=== PATIENT | male | born 1955 | race Caucasian/White ===

== ENCOUNTER 2023-10-06 06:45 | Day surgery (SDC) | payer OTHER ==
[~2023-10-06] VITALS: Ht 175.3 cm; Wt 82.1 kg
[2023-10-06] MEDS ORDERED: SODIUM CHLORIDE 0.9% 1,000 ML ONE (07:40)
[2023-10-06 08:06] LABS: GLUCOMETER DEV NAME(LOC) SDS.; GLUCOSE,POINT OF CARE 141 MG/DL (70-110)
[2023-10-06] MEDS ORDERED: LOSA-382 PO (08:11)
[2023-10-06] MEDS ORDERED: FLUT16SP NASAL (08:11)
[2023-10-06] MEDS ORDERED: FLUT1BLS19 IH (08:11)
[2023-10-06] MEDS ORDERED: METF-1211 PO (08:11)
[2023-10-06] MEDS ORDERED: AMLO-258 PO (08:11)
[2023-10-06] MEDS ORDERED: ALBU18HF12 IH (08:11)
[2023-10-06] MEDS ORDERED: MONT-35 PO (08:11)
[2023-10-06] MEDS ORDERED: OMEP20 PO (08:11)
[2023-10-06] MEDS: SODIUM CHLORIDE 0.9% 1,000 ML IV ONE (08:28)
[2023-10-06] MEDS ORDERED: MIDAZOLAM HCL 2 MG/2 ML VIAL ONE (08:47)
[2023-10-06] MEDS ORDERED: FentaNYL CITRATE PF 100 MCG/2 ML VIAL ONE (08:47)
[2023-10-06 09:18] VITALS: PULSE 73; RESP 14; O2SAT 99
[2023-10-06] MEDS ORDERED: MethylPREDNISolone SOD SUCC 125 MG/2 ML VIAL ONE (09:43)
[2023-10-06] MEDS: MethylPREDNISolone SOD SUCC 125 MG/2 ML VIAL IVP ONE (09:44)
[2023-10-06] MEDS ORDERED: LIDOCAINE 2% 11 ML JELLY ONE (12:00)
[2023-10-06] MEDS ORDERED: ALBUTEROL SULFATE 2.5 MG/0.5 ML NEB SOLUTION NEB ONE (12:00)
[2023-10-06] MEDS ORDERED: LIDOCAINE 4% 50 ML SOLUTION ONE (12:00)
[2023-10-06] MEDS ORDERED: BENZOCAINE 20% 50 MCG/SPRAY 57 GM ONE (12:00)
== END 2023-10-06 11:35 | disposition home or self-care (01) ==
LOC: SURGERY 06:45
PROVIDERS: ATTEND Internal Medicine Critical Care Medicine
DX: R05.3 Chronic cough (principal); R04.2 Hemoptysis; J38.4 Edema of larynx; B37.0 Candidal stomatitis; J98.09 Other diseases of bronchus, not elsewhere classified; J84.10 Pulmonary fibrosis, unspecified; J98.8 Other specified respiratory disorders; M47.814 Spondylosis without myelopathy or radiculopathy, thoracic region; Z85.21 Personal history of malignant neoplasm of larynx
CPT/HCPCS: 82962; 87206; 87101; 87220; 87070; 88108; 31623; 31624; 94640; 71045; 87015; J3010; J2250; J2919; Q9967; J7030; J7613; Z7610